=== PATIENT | female | born 1960 | race Caucasian/White ===

== ENCOUNTER → 2019-11-17 | Outpatient (CLI) | payer BC, OTHER ==
[~2019-11-17] MED LIST: LEVOTHYROXIN0.075 MG PO
--- NOTE | 2019-11-21 14:07 | PATH ---
[facility] [address] [place] [address] PATHOLOGY RPT PROCEDURE Name: JAYDON DAWKINS Room #: REG [facility]#: [id number] Admission: 11/17/19 Date of : 58 Discharge: Report #: [id number] Path Case #: [id number] Note [facility] Accession Number: [id number] TESTS RESULT FLAG UNITS REF RANGE LAB Clinician Provided Cytology Information No. of containers..01 Other (Miscellaneous) Source: RIGHT MID THYRID DIAGNOSIS: RIGHT MID THYRID NEGATIVE FOR MALIGNANT CELLS. BETHESDA CATEGORY II. SPECIMEN CONSISTS OF ABUNDANT BENIGN FOLLICULAR CELLS, HEMOSIDERIN-LADEN MACROPHAGES, SCANT COLLOID AND BLOOD. THE PATTERN IS CONSISTENT WITH ADENOMATOID NODULE. COMMENT, THIS CASE WAS ALSO REVIEWED BY DR. ANIKA GARCIA. THE MATERIAL ASPIRATED MAY NOT BE CLINICAL PHARMACIST. Pathologist ICD10: 02 E04.1 Signed out by: 02 Paul Hanna MD, Pathologist NPI- [id number] Performed by: 01 Leopoldo Coronel, [employer] ([facility]) Gross description: 01 25ML, CLEAR RED, 3FX 3AD CB /LCS 11/17/2019 1745 Local FLAG LEGEND: L-Low Normal,H-High Normal,LL-Alert Low,HH-Alert High <-Panic Low,>-Panic High,A-Abnormal,AA-Critical Abnormal Performed at: [address] [place] [address] Boogie García MD, [address] [address] Angelito Kirk MD, Specimen Comment: A courtesy copy of this report has been sent to [phone] Specimen Comment: Report sent to Performed at: 01 [address] [address], [place], [place] [id number] MD Boogie García MD Phone: [phone]
--- NOTE | 2019-11-21 15:08 | PATH ---
[facility] [address] [place] [address] PATHOLOGY RPT PROCEDURE Name: JAYDON DAWKINS Room #: REG [facility]#: [id number] Admission: 11/17/19 Date of : 58 Discharge: Report #: [id number] Path Case #: [id number] Note [facility] Accession Number: [id number] TESTS RESULT FLAG UNITS REF RANGE LAB Clinician Provided Cytology Information No. of containers..01 Other (Miscellaneous) Source: RT SUPERIOR THYROID DIAGNOSIS: RT SUPERIOR THYROID NEGATIVE FOR MALIGNANT CELLS. BETHESDA CATEGORY II. SPECIMEN CONSISTS OF ABUNDANT BENIGN FOLLICULAR CELLS, HEMOSIDERIN-LADEN MACROPHAGES, SCANT COLLOID AND BLOOD. THE PATTERN IS CONSISTENT WITH ADENOMATOID NODULE. COMMENT, THIS CASE IS ALSO REVIEWED BY DR. ANIKA GARCIA WHO AGREES WITH THE DIAGNOSIS. 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 SUGGEST CLINICAL CORRELATION. Pathologist ICD10: 02 E04.1 Signed out by: 02 Paul Hanna MD, Pathologist NPI- [id number] Performed by: 01 Leopoldo Coronel, Telephone Operators Supervisor ([facility]) Gross description: 01 25ML, CLEAR RED, 3FX 3AD CB /LCS 11/17/2019 1750 Local FLAG LEGEND: L-Low Normal,H-High Normal,LL-Alert Low,HH-Alert High <-Panic Low,>-Panic High,A-Abnormal,AA-Critical Abnormal Performed at: 01 [facility] [address] [facility] [address] [place] [address] Boogie García MD, [address] [address] Angelito Kirk MD, Specimen Comment: A courtesy copy of this report has been sent to [phone] Specimen Comment: Report sent to Performed at: [address] [address] PATHOLOGY RPT PROCEDURE Name: JAYDON DAWKINS Room #: REG [facility]#: [id number] Admission: 11/17/19 Date of : 58 Discharge: Report #: [id number] Path Case #: [id number] [address] [facility] [address], [place], [place] [id number] MD Boogie García MD Phone: [phone]
== END | disposition home or self-care (01) ==
LOC: ULTRA 12:52
DX: E04.1 Nontoxic single thyroid nodule (principal); Z98.890 Other specified postprocedural states; Z79.899 Other long term (current) drug therapy; Z91.041 Radiographic dye allergy status